=== PATIENT | female | born 1950 | race Caucasian/White ===

== ENCOUNTER 2017-01-01 09:29 | Outpatient (CLI) | payer MEDICARE, OTHER ==
[2017-01-01 09:55] LABS: BASOPHILS % 1.3 (0.0-1.5); EOSINOPHILS % 4.7 % (0.0-6.8); MEAN CORPUSCULAR HEMOGLOBIN 34.7 pg (28.0-34.0); MEAN CORPUSCULAR VOLUME 97.4 fl (80.0-100.0); MONOCYTES % 5.7 % (0.0-11.0); NEUTROPHILS # 1.8 # k/uL (1.4-7.7)
[2017-01-01 10:17] LABS: eGFR (African) > 60; eGFR (Non-African) > 60
[2017-01-02 19:10] LABS: SERUM IRON 189 ug/dL (37-145)
== END 2017-01-01 09:30 ==
LOC: LAB 09:29
PROVIDERS: ATTEND Family Medicine
DX: I10 Essential (primary) hypertension (principal); R20.0 Anesthesia of skin; R79.89 Other specified abnormal findings of blood chemistry; D58.2 Other hemoglobinopathies
CPT/HCPCS: 36415; 80053; 80061; 82607; 82728; 82746; 83540; 83550; 84443; 85025

== ENCOUNTER 2017-07-15 09:59 | Outpatient (CLI) | payer MEDICARE, OTHER ==
[2017-07-16 08:37] LABS: EOSINOPHILS % 3.8 % (0.0-6.8); MEAN CORPUSCULAR HEMOGLOBIN 32.8 pg (28.0-34.0); MEAN CORPUSCULAR VOLUME 95.8 fl (80.0-100.0); MONOCYTES % 7.1 % (0.0-11.0); NEUTROPHILS # 2.6 # k/uL (1.4-7.7)
[2017-07-16 11:38] LABS: eGFR (African) > 60; eGFR (Non-African) > 60
== END 2017-07-15 10:00 ==
LOC: LAB 09:59
PROVIDERS: ATTEND Family Medicine
DX: E78.2 Mixed hyperlipidemia (principal); D58.2 Other hemoglobinopathies
CPT/HCPCS: 36415; 80053; 80061; 85025

== ENCOUNTER 2018-10-16 10:07 | Outpatient (CLI) | payer MEDICARE, OTHER ==
--- NOTE | 2018-10-16 21:46 | Diagnostic Imaging Report ---
CHINTAN BERMEO [facility] [address] [id number] Report Submission Date: Oct 16, 2018 1:08:38 PM CDT Patient Study Name: GASTON NAVA Date: Oct 16, 2018 10:11:01 AM CDT Modality Type: DX Gender: F Description: FOOT 3 VIEWS OR MORE : 48 Institution: [facility] Physician: CHINTAN BERMEO Right foot History: Foot pain and swelling Three views of the right foot were obtained which demonstrate a small plantar and large dorsal calcaneal spur. There is no evidence for acute fracture or dislocation and mineralization is normal. There is relatively marked abnormal hypertrophy of the navicular bone medially. 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 Nonetheless, these findings may very well be symptomatic. Please correlate clinically. MRI could be obtained for further assessment. Impression: Calcaneal spurring as described. There is abnormal bony hypertrophy projecting medially from the navicular bone as further described in the body of the report. These findings may very well be symptomatic. MRI of the foot could be obtained for further assessment in this regard. Electronically signed on Oct 16, 2018 1:08:38 PM CDT by: Melissa HERNANDEZ
== END 2018-10-16 10:10 ==
LOC: RAD 10:07
PROVIDERS: ATTEND Family Medicine
DX: M77.31 Calcaneal spur, right foot (principal); M89.371 Hypertrophy of bone, right ankle and foot; M79.671 Pain in right foot
CPT/HCPCS: 73630